=== PATIENT | male | born 1940 | race Caucasian/White ===

== ENCOUNTER 2016-05-21 08:43 | Inpatient (IN) | payer OTHER ==
[2016-04-27 13:34] VITALS: BMI 29.0
--- NOTE | 2016-04-27 14:19 | PAT Medication Instructions ---
Service Date Apr 27, 2016. Current Home Medication List Amlodipine (Norvasc), 5 MG PO QAM Amoxicillin (Amoxil), 500 MG PO QAM Benazepril Hcl (Lotensin), 40 MG PO QAM Ezetimibe (Zetia), 10 MG PO QAM Fish Oil (Hotevilla-3), 1 TAB PO QAM Garlic (Garlic), 1,000 MG PO QAM Ibuprofen (Advil), 600 MG PO BID Multivitamin (Multivitamin), 1 TAB PO QAM Potassium Chloride Microencaps (Klor-Con M10), 10 MEQ PO QAM Nany's Wort (Fanshawe Perf ([place] Wort), 300 MG PO QAM Triamterene/Hctz (Dyazide 37.5MG/25MG *), 1 CAP PO QAM [Antacid Otc], 1 TAB PO PRN [Food Enzymes], 1 TAB PO QAM [Nexium], 1 TAB PO PRN [Shaklee Cholesterol], 2 TAB PO QAM Medication Instructions For Your Scheduled Surgery - Check with surgeon for instructions: Ibuprofen (Advil), 600 MG PO BID - Hold the following medications 2 weeks prior to surgery: Nany's Wort (Fanshawe Perf ([place] Wort), 300 MG PO QAM Garlic (Garlic), 1,000 MG PO QAM Fish Oil (Hotevilla-3), 1 TAB PO QAM - Hold the following medications the morning of surgery: Benazepril Hcl (Lotensin), 40 MG PO QAM [Food Enzymes], 1 TAB PO QAM [Antacid Otc], 1 TAB PO PRN Triamterene/Hctz (Dyazide 37.5MG/25MG *), 1 CAP PO QAM Potassium Chloride Microencaps (Klor-Con M10), 10 MEQ PO QAM Multivitamin (Multivitamin), 1 TAB PO QAM [Shaklee Cholesterol], 2 TAB PO QAM - Take the following medications the morning of surgery with a sip of water: [Nexium], 1 TAB PO PRN Amlodipine (Norvasc), 5 MG PO QAM Ezetimibe (Zetia), 10 MG PO QAM Amoxicillin (Amoxil), 500 MG PO QAM - Take the following medications as scheduled the night before surgery: [Nexium], 1 TAB PO PRN [Antacid Otc], 1 TAB PO PRN If you have any questions please call us at [phone] (Bria Thompson PA-C) or [phone] or [phone]
[2016-04-27 14:56] LABS: BASO % 0.4 %; BASO ABS # 0.03 K/uL (0-0.2); COMPLETE YES; EOS % 2.6 %; HEMATOCRIT 42.2 % (42-52); IG% 0.1 %; LYMPH % 22.6 %; LYMPH ABS # 1.56 K/uL (1.2-3.4); MEAN CELL VOLUME 93.6 fL (80-100); MEAN CORPUSCULAR HEMOGLOBIN 33.9 pg (25-34); MEAN CORPUSCULAR HGB CONC 36.3 g/dl (32-36); MEAN PLATELET VOLUME 10.1 fL (7.4-10.4); MONO % 5.9 %; NEUT % 68.4 %; PLATELET COUNT 224 K/uL (130-400); RED BLOOD COUNT 4.51 M/uL (4.7-6.1)
--- NOTE | 2016-04-27 15:05 | DIAGNOSTIC IMAGING REPORT ---
CHEST 2 VIEWS ROUTINE HISTORY: Preop. COMPARISON: Chest 09/07/2012. FINDINGS: The lungs are clear. Cardiac silhouette is normal in size. No pleural effusions. No pneumothorax. IMPRESSION: No acute process. Electronically signed by: Mal Dove M.D. 04/27/2016 3:03 PM
[2016-04-27 15:06] LABS: PROTHROMBIN TIME (PATIENT) 10.4 SECONDS (9.0-12.0)
[2016-04-27 15:06] LABS: URINE APPEARANCE CLEAR (CLEAR); URINE BILIRUBIN NEG (NEG); URINE COLOR YELLOW; URINE NITRITE NEG (NEG); URINE SPECIFIC GRAVITY 1.018 (1.000-1.030); UROBILINOGEN NEG (NEG); ZZUR CULT IF INDIC CLEAN CATCH NO
[2016-04-27 15:10] LABS: MANUAL MICROSCOPIC REQUIRED? NO; REVIEW REQ? NO
[2016-04-27 15:22] LABS: C-REACTIVE PROTEIN 0.31 mg/dl (0-0.29)
--- NOTE | 2016-05-18 10:19 | HISTORY & PHYSICAL EXAMINATION ---
DATE OF ADMISSION: 05/21/2016 CHIEF COMPLAINT: Painful left total knee replacement. HISTORY OF PRESENT ILLNESS: Mr. Aaron is a 76-year-old male with a painful left total knee replacement. The patient had his knee replaced in 2006. He started having pain in September of 2015. Recent bone scan shows possible loosening of his components. He has now scheduled for left knee replacement. PAST MEDICAL HISTORY: Hypertension, hypercholesterolemia. He denies heart disease, diabetes or DVT. PAST SURGICAL HISTORY: Abdominal mass right kidney, right foot neuroma, bilateral knee replacements, right elbow bursa excision, sinus surgery and lumpectomy left breast. SOCIAL HISTORY: The patient denies alcohol or tobacco use. He lives in a single story home. 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 FAMILY HISTORY: Negative for DVT. MEDICATIONS: Klor-Con 10 mEq daily, benazepril 40 mg daily, garlic 1000 mg, amoxicillin 500 mg, triamterene 37.5/2.5 mg, amlodipine 5 mg, vitamin, [place]'s Wort 300 mg, Food Enzymes, fish oil 1200 mg, ibuprofen 600 mg b.i.d. ALLERGIES: TOBREX AND KEFLEX. REVIEW OF SYSTEMS: See HPI. Ten other systems reviewed, all negative. PHYSICAL EXAMINATION: VITAL SIGNS: Height 5 foot 10, weight 204 pounds, BMI is 29. GENERAL: This is a well-developed, well-nourished male who is alert and oriented x3. Mood and affect are appropriate. HEAD, EYES, EARS, NOSE, AND THROAT: Normocephalic, atraumatic. Mucous membranes are moist and intact. NECK: Supple without lymphadenopathy. HEART: Regular rate and rhythm without murmurs, rubs or gallops. LUNGS: Clear to auscultation without wheezes or rhonchi. ABDOMEN: Soft and nontender. Bowel sounds are equal and active. EXTREMITIES: No ecchymosis, redness or warmth. He has a midline incision that is well healed. He has a mild effusion. Range of motion is from 0-115 degrees. He does have moderate medial lateral instability. He is neurovascularly intact with +5/5 strength. X-RAY EXAMINATION: AP and lateral views show a left total knee arthroplasty in adequate position. Bone scan is positive for loosening. IMPRESSION: Aseptic loosening left knee replacement. PLAN: The patient will be admitted for a left total knee arthroplasty revision. We will plan on aspirin for DVT prophylaxis. The patient is planning to do outpatient physical therapy. PCP is Dr. Hayes [facility]. [facility]
[2016-05-21] VITALS (7 sets, daily range): BP systolic 118–151; BP diastolic 73–90; PULSE 61–74; TEMP 36.3–36.8; O2SAT 93–95; Ht 177.8 cm; Wt 93.0 kg
[~2016-05-21] VITALS: Ht 177.8 cm; Wt 93.0 kg
[2016-05-21] MEDS: TRANEXAMIC ACID INJ 1,000 MG in SODIUM CHLORIDE 0.9% 100ML 100 ML IV SCH ×2 (06:30→11:15)
[~2016-05-21 08:43] MED LIST: ACETAMINOPHEN 500 MG TAB PO SCH; AMLO-110 PO; AMOX500C3 PO; ANTACID OTC PO; BENA40TA6 PO; BUPIVACAINE 0.5 % 5 MG/1 ML PF 10ML VIAL ONE; CeleBREX 200 MG CAP PO SCH; DEXAMETHASONE 4 MG TAB PO SCH; DYZ PO; EZET10TA63 PO; FAMOTIDINE 20 MG TAB PO SCH; FOOD ENZYMES PO; GABAPENTIN 300 MG CAP PO SCH; GARL10007 PO; IBUP-1050 PO; LACTATED RINGER'S 1000ML 1,000 ML IV SCH; LACTATED RINGER'S 1000ML IV SCH; METOCLOPRAMIDE HCL 10 MG TAB PO SCH; MULT-506 PO; NEXIUM PO; OMEG10007 PO; OXYCODONE HCL 10 MG TABCR (OXYCONTIN) PO SCH; POLYMYXIN B SULFATE 100,000 UNITS in NSS 100ML IR SCH; POTA-331 PO; ROPIVACAINE 5MG/ML 30 ML 150 MG, BUPIVACAINE/EPINEPHR 0.5% MPF 30 ML, KETOROLAC TROMETH... INFIL SCH; ST J1CAP PO; VANCOMYCIN INJ 1,400 MG in SODIUM CHLORIDE 0.9% 500ML 500 ML IV SCH; VANCOMYCIN INJ 400 MG in NSS 100ML IR SCH; [UNRECOGNIZED DRUG - OTHER] PO
[2016-05-21] MEDS ORDERED: ACET-1256 PO (09:36)
[2016-05-21] MEDS ORDERED: ATROPINE SULFATE 0.1 MG/ML 5ML SYR IV PRN (10:15)
[2016-05-21] MEDS ORDERED: FENTANYL CITRATE INJ 50 MCG/1 ML 2 ML VIAL IV PRN (10:15)
[2016-05-21] MEDS ORDERED: MIDAZOLAM HCL 1 MG/ML 2ML VIAL ONE (10:15)
[2016-05-21] MEDS ORDERED: EpHEDrine SULFATE INJ 50 MG/ML AMP IV PRN (10:15)
[2016-05-21] MEDS ORDERED: ETOMIDATE 2 MG/ML 20 ML VIAL IV ONE (10:15)
[2016-05-21] MEDS ORDERED: ONDANSETRON INJ 2 MG/ML 2 ML VIAL IV PRN ×2 (10:15→14:15)
[2016-05-21] MEDS ORDERED: PROPOFOL IV EMULSION 10 MG/ML 20 ML VIAL IV ONE (10:16)
[2016-05-21] MEDS ORDERED: FENTANYL CITRATE INJ 50 MCG/1 ML 2 ML VIAL ONE (10:16)
--- NOTE | 2016-05-21 11:17 | History & Physical Bridge Note ---
H&P Re-Evaluation Bridge Note: I have examined the patient, reviewed the History & Physical and in the interval since the performance of the History & Physical I have noted the following changes of clinical significance: No changes noted
[2016-05-21] MEDS ORDERED: ORTHO JOINT ANESTHETIC ONE (11:48)
--- NOTE | 2016-05-21 14:08 | [facility] Post Operative Brief Note ---
Immediate Operative Summary Operative Date May 21, 2016. Pre-Operative Diagnosis Aseptic Loosening Left Total Knee Arthroplasty Post-Operative Diagnosis Aseptic Loosening Left Total Knee Arthroplasty Procedure(s) Performed Left Total Knee Revision Surgeon Dr. Rudy Sanford Exposure Machine Operator Surgeon(s) MISAEL Odell Estimated Blood Loss 5 Findings tibia very loose Specimens A. Removed Hardware Left Knee Culture--Left Knee Joint--for STAT gram stain, routine culture and sensitivity, aerobes and anaerobes--sent to lab at 1242 Complication(s) None Disposition Recovery Room / PACU
[2016-05-21] MEDS ORDERED: METOCLOPRAMIDE HCL INJ 5 MG/ML 2 ML VIAL IV PRN (14:15)
[2016-05-21] MEDS ORDERED: ALUMINUM/MAGNESIUM/SIMETH (MAALOX MAX) 30 ML UDC PO PRN (14:15)
[2016-05-21] MEDS ORDERED: BISACODYL 10 MG SUPP PR PRN (14:15)
[2016-05-21] MEDS ORDERED: OXYCODONE HCL IR 5 MG TAB (IMMEDIATE RELEASE) PO PRN (14:15)
[2016-05-21] MEDS ORDERED: ZOLPIDEM TARTRATE 5 MG TAB PO PRN (14:15)
[2016-05-21] MEDS ORDERED: MAGNESIUM HYDROXIDE SUSP 30 ML UDC PO PRN (14:15)
[2016-05-21] MEDS ORDERED: TRAMADOL HCL 50 MG TAB PO PRN (14:15)
[2016-05-21] MEDS ORDERED: DiphenhydrAMINE HCL 50 MG/ML VIAL IV PRN (14:15)
[2016-05-21] MEDS ORDERED: SOD PHOSPHATE/SOD BIPHOSPHATE ENEMA 132 ML BTL PR PRN (14:15)
[2016-05-21] MEDS ORDERED: MoRPHine SULFATE 2 MG/ML CARP IV PRN (14:15)
[2016-05-21] MEDS ORDERED: POVIDONE-IODINE OP SOLN 30 ML BTL TOP ONE (14:26)
[2016-05-21] MEDS ORDERED: BACITRACIN 50000 UNIT VIAL IR ONE (14:26)
--- NOTE | 2016-05-21 15:02 | DIAGNOSTIC IMAGING REPORT ---
LEFT KNEE 1 OR 2 VIEWS ROUTINE CLINICAL HISTORY: Left knee arthroplasty. COMPARISON: Knee radiographs March 28, 2013 FINDINGS: Alignment of the revision longstem left knee arthroplasty is anatomic. There is no fracture or unexpected radiopaque foreign body. Drains and skin sahra are present. IMPRESSION: Expected findings following revision left knee arthroplasty. Electronically signed by: Bruno Lees M.D. 05/21/2016 3:00 PM Dictated Date/Time: 05/21/2016 2:59 PM
--- NOTE | 2016-05-21 15:24 | OPERATIVE REPORT ---
DATE OF OPERATION: 05/21/2016 PREOPERATIVE DIAGNOSIS: Painful left total knee with aseptic loosening. POSTOPERATIVE DIAGNOSIS: Same. PROCEDURE: Left revision total knee replacement. SURGEON: Gabriele Sanford MD SET BUILDER: MISAEL Odell ANESTHESIA: Spinal. TOURNIQUET TIME: 120 minutes at 300 mmHg. DRAINS: Hemovac x2. CULTURES: None. COMPLICATIONS: None. COMPONENTS USED: [employer] [facility] revision knee system: Femur size 6 with bilateral 5-mm distal augments, bilateral 5-mm posterior augments, 6-mm offset, and an 18 x 120 stem. Tibia size 6, 6-mm offset, and 14 x 120 stem. Tibial insert 18 constrained. Patella size 38. NOTE: MISAEL Odell was present and assisted throughout due to the complicated nature of this case. She helped with preparation and set up, first assisted throughout and personally closed the capsule, subcutaneous and skin layers and applied the postoperative dressing. INDICATION FOR PROCEDURE: The patient is a 76-year-old male who is 9 years status post uncomplicated total knee replacement. He had done well with essentially no complaints or problems whatsoever. Over the last half year or so, he began developing discomfort and recurrent effusion. Radiographs showed lucencies about the tibia. Preoperative workup showed a positive bone scan, suggestive of loosening of the tibia. Preoperative inflammatory measures were negative and preoperative aspiration done at another institution was also negative. The patient is admitted for elective knee revision for presumed aseptic loosening. DESCRIPTION OF PROCEDURE: Following satisfactory spinal, the patient was supine. A tourniquet was placed. The lower extremity was prepared with ChloraPrep and draped sterilely. Following a surgical timeout, the tourniquet was inflated. A midline incision was made. Using the midline old incision with a median parapatellar arthrotomy, the knee showed a bunch of benign fluid. Cultures were taken. The tibial polyethylene was removed. It was apparent that the tibial component was loose that could be seen wiggling. The femoral component was more well fixed. Using the ultrasonic cement removal system, the femur was removed with minimal to no bone loss. The femur was not grossly loose. The tibia was loose and was removed without incident and just showed a fibrous membrane. The patella was measured thick at 30 mm and therefore was also removed. Using the IM reaming and alignment system, the tibia was prepared first followed by the femur. Preparation was completed including soft tissue balancing. Patella was freehand cut. The knee was then reduced with the above-mentioned trial components. This showed good tensioning stability on the collateral ligaments, stable range of motion, and the patella tracked well. The trial components were removed. The capsule was prepared with the orthopedic cocktail and after irrigation, the components were cemented using Simplex G cement. A Betadine soak was performed. When the cement had hardened, the Betadine was irrigated. Two drains were placed. The arthrotomy was closed with #1 Vicryl interrupted, the subcutaneous tissues with #1 Vicryl and 2-0 Vicryl, and the skin with surgical sahra. A surface wound VAC was applied. The tourniquet was deflated. The patient was returned to his bed in good condition. I attest to the content of the Intraoperative Record and any orders documented therein. Any exceptio ns are noted below.
--- NOTE | 2016-05-21 15:25 | Anesthesiology Progress Note ---
Anesthesia Post Op Note Date & Time May 21, 2016 at 15:25 Vital Signs Pain Intensity: 0 Vital Signs Past 12 Hours Date Time Temp Pulse Resp B/P Pulse Ox O2 Delivery O2 Flow Rate FiO2 05/21/16 15:15 36.4 73 16 137/80 94 Nasal Cannula 2 05/21/16 15:05 73 16 135/69 93 Nasal Cannula 2 05/21/16 14:55 73 16 107/97 93 Nasal Cannula 2 05/21/16 14:45 79 16 129/72 93 Nasal Cannula 2 05/21/16 14:35 36.5 87 16 137/79 93 Nasal Cannula 2 05/21/16 09:48 36.5 67 20 144/80 95 Room Air Notes Mental Status: alert / awake / arousable, participated in evaluation Pt Amnestic to Procedure: Yes Nausea / Vomiting: adequately controlled Pain: adequately controlled Airway Patency, RR, SpO2: stable & adequate BP & HR: stable & adequate Hydration State: stable & adequate Neuraxial Anesthesia: was administered, sensory block is resolving Anesthetic Complications: no major complications apparent
[2016-05-21] MEDS: D5W AND 1/2NSS + 20MEQ KCL 1,000 ML IV SCH (17:23)
[2016-05-21] MEDS: ACETAMINOPHEN 500 MG TAB PO SCH (18:42)
[2016-05-21] MEDS: CLINDAMYCIN IV 600 MG in DEXTROSE 5% ADD-VANTAGE 50ML 50 ML IV SCH (18:42)
[2016-05-21] MEDS: KETOROLAC TROMETHAMINE 15 MG/ML VIAL IV. SCH (18:42)
[2016-05-21] MEDS: OXYCODONE HCL 10 MG TABCR (OXYCONTIN) PO SCH (20:42)
[2016-05-21] MEDS: SENNA 8.6 MG TAB PO SCH (20:43)
[2016-05-21] MEDS: ASPIRIN 325 MG ECTAB PO SCH (21:37)
[2016-05-22] MEDS: ACETAMINOPHEN 500 MG TAB PO SCH ×4 (00:08→23:24)
[2016-05-22] MEDS: KETOROLAC TROMETHAMINE 15 MG/ML VIAL IV. SCH ×5 (00:08→23:25)
[2016-05-22] MEDS: CLINDAMYCIN IV 600 MG in DEXTROSE 5% ADD-VANTAGE 50ML 50 ML IV SCH (02:27)
[2016-05-22] MEDS: D5W AND 1/2NSS + 20MEQ KCL 1,000 ML IV SCH ×2 (02:27→12:10)
[2016-05-22 03:00] VITALS: BP 113/67; PULSE 55; TEMP 36.6; O2SAT 98
[2016-05-22 06:33] LABS: MEAN CORPUSCULAR HEMOGLOBIN 33.2 pg (25-34); MEAN CORPUSCULAR HGB CONC 35.8 g/dl (32-36); MEAN PLATELET VOLUME 9.9 fL (7.4-10.4); PLATELET COUNT 207 K/uL (130-400); RED BLOOD COUNT 3.55 M/uL (4.7-6.1); WHITE BLOOD COUNT 11.37 K/uL (4.8-10.8)
[2016-05-22 07:07] LABS: BUN/CREATININE RATIO 24.5 (10-20); CALCIUM 8.5 mg/dl (8.5-10.1); POTASSIUM 4.2 mmol/L (3.5-5.1)
--- NOTE | 2016-05-22 07:28 | Orthopedic Progress Note ---
Orthopedic Progress Note Date of Service May 22, 2016. Subjective Post OP Day: 1 Reports: feeling well, pain controlled w PO medications, Denies: SOB, chest pain , complaints, light headedness, nausea / vomiting Objective calves soft nontender, N/V intact, dressing C/D/I, toes mobile, hemovac drainage (250 last shift ) Date Time Temp Pulse Resp B/P Pulse Ox O2 Delivery O2 Flow Rate FiO2 05/22/16 03:00 36.6 55 16 113/67 98 CPAP 05/22/16 00:10 Room Air CPAP 05/21/16 23:05 36.4 61 16 118/73 93 BiPAP 05/21/16 18:45 36.3 69 18 131/77 94 Room Air 05/21/16 17:45 36.8 74 18 151/89 95 Nasal Cannula 2.0 05/21/16 16:45 36.3 73 18 142/90 93 Nasal Cannula 2.0 05/21/16 16:15 36.3 66 18 145/86 95 Nasal Cannula 2.0 05/21/16 16:00 Nasal Cannula 2.0 05/21/16 16:00 Nasal Cannula 2.0 05/21/16 15:45 36.3 74 18 146/81 94 Nasal Cannula 2.0 05/21/16 15:35 75 16 129/81 93 Nasal Cannula 2 05/21/16 15:25 67 16 114/80 95 Nasal Cannula 2 05/21/16 15:15 36.4 73 16 137/80 94 Nasal Cannula 2 05/21/16 15:05 73 16 135/69 93 Nasal Cannula 2 05/21/16 14:55 73 16 107/97 93 Nasal Cannula 2 05/21/16 14:45 79 16 129/72 93 Nasal Cannula 2 05/21/16 14:35 36.5 87 16 137/79 93 Nasal Cannula 2 05/21/16 09:48 36.5 67 20 144/80 95 Room Air Laboratory Results 24 Hours: Test 05/22/16 05:55 Hematocrit 33.0 % Hemoglobin 11.8 g/dL Assessment & Plan Assessment: POD 1 L REVISION TKA Plan: HOME TODAY LEAVE DRAIN IN WILL DC AT HOME TUESDAY Inhouse Planning Pain Management: Celebrex, Oxycontin, PO Tylenol, Oxy IR DVT Prophylaxis: TEDs, SCDs, ASA Discharge Planning Discharge Planning: home with oppt Pain Management: Celebrex, Oxycontin, PO Tylenol, Oxy IR DVT Prophylaxis: TEDs, ASA
--- NOTE | 2016-05-22 07:30 | Orthopedic Progress Note ---
Orthopedic Progress Note Date of Service May 22, 2016. Subjective Post OP Day: 1 Reports: feeling well, pain controlled w PO medications, Denies: SOB, chest pain , complaints, light headedness, nausea / vomiting Objective calves soft nontender, N/V intact Date Time Temp Pulse Resp B/P Pulse Ox O2 Delivery O2 Flow Rate FiO2 05/22/16 03:00 36.6 55 16 113/67 98 CPAP 05/22/16 00:10 Room Air CPAP 05/21/16 23:05 36.4 61 16 118/73 93 BiPAP 05/21/16 18:45 36.3 69 18 131/77 94 Room Air 05/21/16 17:45 36.8 74 18 151/89 95 Nasal Cannula 2.0 05/21/16 16:45 36.3 73 18 142/90 93 Nasal Cannula 2.0 05/21/16 16:15 36.3 66 18 145/86 95 Nasal Cannula 2.0 05/21/16 16:00 Nasal Cannula 2.0 05/21/16 16:00 Nasal Cannula 2.0 05/21/16 15:45 36.3 74 18 146/81 94 Nasal Cannula 2.0 05/21/16 15:35 75 16 129/81 93 Nasal Cannula 2 05/21/16 15:25 67 16 114/80 95 Nasal Cannula 2 05/21/16 15:15 36.4 73 16 137/80 94 Nasal Cannula 2 05/21/16 15:05 73 16 135/69 93 Nasal Cannula 2 05/21/16 14:55 73 16 107/97 93 Nasal Cannula 2 05/21/16 14:45 79 16 129/72 93 Nasal Cannula 2 05/21/16 14:35 36.5 87 16 137/79 93 Nasal Cannula 2 05/21/16 09:48 36.5 67 20 144/80 95 Room Air Laboratory Results 24 Hours: Test 05/22/16 05:55 Hematocrit 33.0 % Hemoglobin 11.8 g/dL Assessment & Plan Assessment: POD 1 L REVISION TKA Plan: HOME TSUNDAY LEAVE DRAIN IN WILL DC TOMORROW Inhouse Planning Pain Management: Celebrex, Oxycontin, PO Tylenol, Oxy IR DVT Prophylaxis: TEDs, SCDs, ASA Discharge Planning Discharge Planning: home with oppt Pain Management: Celebrex, Oxycontin, PO Tylenol, Oxy IR DVT Prophylaxis: TEDs, ASA
[2016-05-22 07:43] VITALS: BP 161/87; PULSE 63; TEMP 36.4; O2SAT 97
[2016-05-22] MEDS: AMLODIPINE BESYLATE 5 MG TAB PO SCH (08:52)
[2016-05-22] MEDS: ENALAPRIL MALEATE 10 MG TAB PO SCH (08:52)
[2016-05-22] MEDS: TRIAMTERENE/HCTZ 37.5/25MG CAP PO SCH (08:52)
[2016-05-22] MEDS: POTASSIUM CHLORIDE 10 MEQ TABCR PO SCH (08:52)
[2016-05-22] MEDS: MULTIVITAMIN TAB PO SCH (08:52)
[2016-05-22] MEDS: EZETIMIBE 10MG TAB PO SCH (08:53)
[2016-05-22] MEDS: ASPIRIN 325 MG ECTAB PO SCH ×2 (08:53→21:07)
[2016-05-22] MEDS: OXYCODONE HCL 10 MG TABCR (OXYCONTIN) PO SCH ×2 (08:53→21:08)
[2016-05-22] MEDS: PANTOprazole SOD 40 MG TAB PO SCH (08:57)
[2016-05-22 09:52] VITALS: BP 148/83; PULSE 80; O2SAT 86
[2016-05-22 15:17] VITALS: BP 149/82; PULSE 79; TEMP 36.5; O2SAT 97
[2016-05-22] MEDS: SENNA 8.6 MG TAB PO SCH (21:08)
[2016-05-22 23:03] VITALS: BP 152/88; PULSE 76; TEMP 36.8; O2SAT 92
[2016-05-23] MEDS: KETOROLAC TROMETHAMINE 15 MG/ML VIAL IV. SCH ×2 (05:48→12:00)
[2016-05-23 07:08] VITALS: BP 144/81; PULSE 62; TEMP 36.5; O2SAT 96
[2016-05-23 07:38] VITALS: BP 144/81; PULSE 62; TEMP 36.5; O2SAT 96
--- NOTE | 2016-05-23 08:21 | Orthopedic Progress Note ---
Orthopedic Progress Note Date of Service May 23, 2016. Subjective Post OP Day: 2 Reports: feeling well, pain controlled w PO medications, Denies: SOB, calf pain , chest pain, complaints, light headedness, nausea / vomiting Objective calves soft nontender, N/V intact, capillary refill less than 2 sec., dressing C /D/I, A&O x3, toes mobile Date Time Temp Pulse Resp B/P Pulse Ox O2 Delivery O2 Flow Rate FiO2 05/23/16 07:38 36.5 62 19 96 Room Air CPAP 05/23/16 07:20 Room Air CPAP 05/23/16 07:08 36.5 62 19 144/81 96 Room Air 05/22/16 23:15 Room Air 05/22/16 23:03 36.8 76 18 152/88 92 Room Air 05/22/16 15:30 Room Air 05/22/16 15:17 36.5 79 17 149/82 97 Room Air 05/22/16 09:52 80 86 Assessment & Plan Assessment: POD #2 L REVISION TKA Plan: HOME TODAY HEMOVAC D/C'D THIS AM. Inhouse Planning Pain Management: Celebrex, Oxycontin, PO Tylenol, Oxy IR DVT Prophylaxis: TEDs, SCDs, ASA Discharge Planning Discharge Planning: home with oppt Pain Management: Celebrex, Oxycontin, PO Tylenol, Oxy IR DVT Prophylaxis: TEDs, ASA
[2016-05-23] MEDS ORDERED: RXC5 PO (08:24)
[2016-05-23] MEDS ORDERED: ACET-1138 PO (08:24)
[2016-05-23] MEDS ORDERED: CLB200 PO (08:24)
[2016-05-23] MEDS ORDERED: MORP15TA19 PO (08:24)
[2016-05-23] MEDS ORDERED: ONDA8TAB6 PO (08:24)
[2016-05-23] MEDS ORDERED: ASPEC325 PO (08:24)
--- NOTE | 2016-05-23 08:26 | Discharge Instructions ---
Discharge Instructions Admission Reason for Admission: Left Knee Complication W/Internal Joint Prosthesis Discharge Discharge Diagnosis / Problem: Left Knee Complication W/Internal Joint Prosthesis Discharge Goals Goal(s): Decrease discomfort, Improve function Activity Recommendations Activity Limitations: as noted below Lifting Limitations: until after follow-up appointment Exercise/Sports Limitations: until after follow-up appointment May Resume Sexual Activity: when tolerated Shower/Bathe: may shower/bathe in 3 days (Keep Silverlon dressing in place) Driving or Machine Use: When cleared by Dr. Sanford's office. Weightbearing Status: Left weightbearing (as tolerated) . Instructions / Follow-Up Instructions / Follow-Up ACTIVITY RECOMMENDATIONS: SELF CARE INSTRUCTIONS AFTER TOTAL KNEE REPLACEMENT A. You may need to continue a physical therapy program after discharge from the hospital. There are several options available to you. Your doctor will assist you in selecting the best one for you. 1. An out-patient facility 3 times a week for therapy. 2. Home therapy for 1 to 2 weeks with outpatient therapy to follow. 3. Continue working on all exercises taught by physical therapy three times a day for 20 minutes on non-therapy days. Your goals should be to increase the bending of your knee to 90 degrees and beyond and to fully straighten your knee. Ice and elevate knee after exercise. B. Weight as tolerated with a walker or as instructed by your physician. C. It is okay to shower if minimal to no drainage from incision. No Baths. Do not soak wound. D. Make walking a part of your daily routine. Be up as much as comfortable with rest periods throughout the day. Rest with leg elevation is very important. Use the ice wrap frequently for the first 3-4 weeks. E. There are no restrictions on activities. You may ride in a car, shop, participate in sales assistants and salespersons and all social activities. F. Wear the long elastic stockings (MILAN hose) 20 hours a day for one month after surgery. They can be removed several times a day for laundering and when showering. G. Silverlon- This is a large adhesive bandage that contains silver ions. This helps your incision heal by fighting off bacteria and protecting it from the outside environment. You are permitted to shower with this dressing. This will remain on your incision for 7 days and then should be removed. Some visible blood or drainage through the dressing window is normal. If there is significant drainage or leaking noted before the 7 days notify your doctor's office immediately. Once removed, keep incision clean and dry. If there is any drainage or redness noted, please call your surgeon. SPECIAL CARE INSTRUCTIONS: VERY IMPORTANT TO READ AND REVIEW A. Take Coumadin, Xarelto, Aspirin or Lovenox (blood thinning medications) as directed by your doctor. If on Coumadin, have a pro-time (blood test) drawn according to your doctor's instructions. This will tell the doctor how well the Coumadin is thinning your blood. B. There are a few signs you need to watch for after you are home. Call [facility] if you notice any of the followin. Increased severe knee pain. Some pain is expected especially when you exercise. 2. Increased swelling in your leg or knee; pain or swelling of the calf muscle in either lower leg. 3. Any redness or fluid drainage from the incision. 4. Shortness of breath or chest pain. 5. A Temperature of 101 degrees F or greater. C. Please call [facility] at if you have any concerns or questions about your operation or recovery. The doctor or his nurse will return your call promptly. D. You must take antibiotics before dental work, bladder, bowel or other surgery. Your doctor will provide you with a permanent care to carry describing this precaution. FOLLOW UP VISIT: If appointment is not already scheduled: Please call [facility] to make a follow-up appointment for one month after your surgery at . Current Hospital Diet Patient's current hospital diet: Regular Diet Discharge Diet Recommended Diet: Regular Diet Procedures Procedures Performed: Left Total Knee Revision Pending Studies Studies pending at discharge: no Medical Emergencies . Who to Call and When: Medical Emergencies: If at any time you feel your situation is an emergency, please call [phone] immediately. . Non-Emergent Contact Non-Emergency issues call your: Surgeon Call Non-Emergent contact if: temperature is above 101, your pain is not controlled, your pain is worsening, wound has increased drainage, wound has increased redness, wound has increased pain . "Provider Documentation" section prepared by Manjinder Ontiveros. VTE Core Measure Inpt VTE Proph given/why not?: Other Anticoagulation (Aspirin), T.E.D. Stockings
[2016-05-23] MEDS: AMLODIPINE BESYLATE 5 MG TAB PO SCH (08:45)
[2016-05-23] MEDS: POTASSIUM CHLORIDE 10 MEQ TABCR PO SCH (08:45)
[2016-05-23] MEDS: OXYCODONE HCL 10 MG TABCR (OXYCONTIN) PO SCH (08:45)
[2016-05-23] MEDS: ASPIRIN 325 MG ECTAB PO SCH (08:45)
[2016-05-23] MEDS: ENALAPRIL MALEATE 10 MG TAB PO SCH (08:46)
[2016-05-23] MEDS: EZETIMIBE 10MG TAB PO SCH (08:46)
[2016-05-23] MEDS: PANTOprazole SOD 40 MG TAB PO SCH (08:47)
[2016-05-23] MEDS: TRIAMTERENE/HCTZ 37.5/25MG CAP PO SCH (08:48)
[2016-05-23] MEDS: MULTIVITAMIN TAB PO SCH (08:48)
[2016-05-23] MEDS: ACETAMINOPHEN 500 MG TAB PO SCH (08:49)
[2016-05-23] MEDS ORDERED: CeleBREX 200 MG CAP PO SCH (21:00)
--- NOTE | 2016-06-08 12:08 | DISCHARGE SUMMARY ---
DISCHARGE DIAGNOSIS: Painful left total knee replacement. SECONDARY DIAGNOSES: None. CONSULTS: None. COMPLICATIONS: None. PROCEDURE: The patient underwent revision left total knee arthroplasty with Dr. Sanford on 05/21/2016. BRIEF HISTORY: Please see previously dictated history and physical. HOSPITAL SUMMARY: The patient was admitted on the above day for the above procedure. Procedure went without complication. Postop day 1, the patient was feeling well without complaints. He denied chest pain or shortness of breath. Vital signs were stable. He was afebrile. Dressing was clean, dry and intact. He was neurovascularly intact. Calves were soft and nontender. Hemovac drained 250 mL. Hemoglobin was 11.8. The patient began physical therapy per protocol. The patient was discharged later that day in stable condition. For further review please see the chart. Lab, x-ray data and discharge instructions as per chart.
== END 2016-05-23 13:43 | disposition home or self-care (01) | DRG 468 ==
LOC: ENRESERVTM → ENRESERVDT → C.ACU 08:43 → C.3E 10:30
PROVIDERS: ADMIT Orthopaedic Surgery; ATTEND Orthopaedic Surgery
PROC: 0SPD0JZ Removal of Synthetic Substitute from Left Knee Joint, Open Approach (ICD-10-PCS; principal; 2016-05-21 11:00)
PROC: 0SRD0J9 Replacement of Left Knee Joint with Synthetic Substitute, Cemented, Open Approach (ICD-10-PCS; principal; 2016-05-21 11:00)
DX: T84.033A Mechanical loosening of internal left knee prosthetic joint, initial encounter (principal); E78.00 Pure hypercholesterolemia, unspecified; I10 Essential (primary) hypertension; G47.33 Obstructive sleep apnea (adult) (pediatric); R20.0 Anesthesia of skin; E66.9 Obesity, unspecified; E78.5 Hyperlipidemia, unspecified; K21.9 Gastro-esophageal reflux disease without esophagitis; G62.9 Polyneuropathy, unspecified; Z79.1 Long term (current) use of non-steroidal anti-inflammatories (NSAID); Z79.899 Other long term (current) drug therapy; Z96.653 Presence of artificial knee joint, bilateral; Z68.29 Body mass index [BMI] 29.0-29.9, adult; Z98.890 Other specified postprocedural states

== ENCOUNTER 2016-06-09 10:22 | Inpatient (IN) | payer OTHER ==
[~2016-06-09] VITALS: Ht 177.8 cm; Wt 93.0 kg
[2016-06-09] VITALS (7 sets, daily range): BP systolic 118–146; BP diastolic 70–88; PULSE 66–86; TEMP 36.3–37.2; O2SAT 96–99; Ht 177.8 cm; Wt 93.0 kg
[~2016-06-09 10:22] MED LIST changes: +ACET-1138 PO; -ACETAMINOPHEN 500 MG TAB PO SCH; +ASPEC325 PO; -BUPIVACAINE 0.5 % 5 MG/1 ML PF 10ML VIAL ONE; +CLB200 PO; -CeleBREX 200 MG CAP PO SCH; -DEXAMETHASONE 4 MG TAB PO SCH; -FAMOTIDINE 20 MG TAB PO SCH; -GABAPENTIN 300 MG CAP PO SCH; -IBUP-1050 PO; -LACTATED RINGER'S 1000ML 1,000 ML IV SCH; -LACTATED RINGER'S 1000ML IV SCH; -METOCLOPRAMIDE HCL 10 MG TAB PO SCH; +MORP15TA19 PO; +ONDA8TAB6 PO; -OXYCODONE HCL 10 MG TABCR (OXYCONTIN) PO SCH; -POLYMYXIN B SULFATE 100,000 UNITS in NSS 100ML IR SCH; -ROPIVACAINE 5MG/ML 30 ML 150 MG, BUPIVACAINE/EPINEPHR 0.5% MPF 30 ML, KETOROLAC TROMETH... INFIL SCH; +RXC5 PO; -VANCOMYCIN INJ 1,400 MG in SODIUM CHLORIDE 0.9% 500ML 500 ML IV SCH; -VANCOMYCIN INJ 400 MG in NSS 100ML IR SCH
[2016-06-09] MEDS ORDERED: POTA10CA28 PO (10:46)
[2016-06-09] MEDS ORDERED: ASPI81TA28 PO (10:46)
[2016-06-09] MEDS ORDERED: TRIA37.5 PO (10:46)
[2016-06-09] MEDS ORDERED: SODIUM CHLORIDE 0.9% 500ML 500 ML IV STA (11:11)
--- NOTE | 2016-06-09 11:13 | EMERGENCY ROOM VISIT NOTE ---
History First contact with patient: 10:55 Chief Complaint: FALL Stated Complaint: FELL History of Present Illness The patient is a 76 year old male who presents to the Emergency Room via ambulance with complaints of "fell". The patient states that earlier today he was outside shoveling snow around 8:30 AM when he went to step towards his mailbox and slipped on the ice landing directly onto his left knee overlying the surgical incision region. He states that this split open and then began to bleed. He at this time denies any pain. He notes that the left thigh does feel slightly tight and has slipped but did not fall twice in the recent past causing the thigh muscle to tighten/hurt with today being the third time. He again notes that at this time nothing hurts. He denies any pain, striking his head, loss of consciousness, neck pain, fevers, chills, chest pain, shortness of breath. His tetanus is not up-to-date. The surgery to the left knee was performed on 05/21/[address] Sanford of [facility]. He is currently on Augmentin for a sinus infection. Review of Systems A complete 10-point Review of Systems was discussed with the patient, with pertinent positives and negatives listed in the History of Present Illness. All remaining Review of Systems questions can be considered negative unless otherwise specified. 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 He lives at home with his . He denies tobacco use but admits to alcohol consumption. Current/Historical Medications Scheduled Acetaminophen (Tylenol Extra Strength), 1,000 MG PO Q8@0000,0800,1600 Amlodipine (Norvasc), 5 MG PO QAM Amoxicillin (Amoxil), 500 MG PO QAM Aspirin (Aspirin Ec), 81 MG PO DAILY Benazepril Hcl (Lotensin), 40 MG PO QAM Celecoxib (Celebrex), 200 MG PO BID Ezetimibe (Zetia), 10 MG PO QAM Fish Oil ([place]-3), 1 TAB PO QAM Garlic (Garlic), 1,000 MG PO QAM Multivitamin (Multivitamin), 1 TAB PO QAM Potassium Chloride (Micro-K Ext Rel), 10 MEQ PO DAILY Nany's Wort ([place] Perf ([place] Wort), 300 MG PO QAM Triamterene/Hctz (Dyazide 37.5MG/25MG), 1 TAB PO QAM Allergies Coded Allergies: Cephalexin (Verified Allergy, Unknown, ITCHY REDNESS, 05/21/16) Tobramycin (Verified Allergy, Unknown, swelling redness with eye drops, ) Physical Exam Vital Signs Date Time Temp Pulse Resp B/P Pulse Ox O2 Delivery O2 Flow Rate FiO2 06/09/16 17:00 97 Nasal Cannula 2.0 06/09/16 17:00 Nasal Cannula 2.0 06/09/16 17:00 36.5 66 18 118/78 97 Nasal Cannula 2.0 06/09/16 16:49 64 16 100 06/09/16 16:49 63 16 06/09/16 16:48 118/70 06/09/16 16:44 60 16 06/09/16 16:44 60 16 100 06/09/16 16:43 128/72 06/09/16 16:39 62 18 06/09/16 16:39 61 18 100 06/09/16 16:38 120/68 06/09/16 16:34 62 16 06/09/16 16:34 64 16 100 06/09/16 16:33 62 15 122/73 100 06/09/16 16:33 62 15 06/09/16 16:28 63 15 06/09/16 16:28 61 15 115/72 100 06/09/16 16:27 62 18 06/09/16 16:27 62 18 100 06/09/16 16:24 110/70 06/09/16 16:22 62 17 06/09/16 16:22 61 17 99 06/09/16 16:18 107/70 06/09/16 16:17 60 9 06/09/16 16:17 61 9 100 06/09/16 16:13 117/64 06/09/16 16:12 60 12 100 06/09/16 16:12 59 12 06/09/16 16:08 101/67 06/09/16 16:07 66 20 06/09/16 16:07 65 20 100 06/09/16 16:03 100/57 06/09/16 16:02 63 12 100 06/09/16 16:02 64 12 06/09/16 15:58 94/62 06/09/16 15:57 71 15 06/09/16 15:57 71 15 100 06/09/16 15:53 106/67 06/09/16 15:52 66 12 06/09/16 15:52 68 12 100 06/09/16 15:48 102/62 06/09/16 15:47 36.3 80 18 106/65 98 Nasal Cannula 2 06/09/16 15:47 75 19 06/09/16 15:47 75 19 100 06/09/16 12:33 97 Room Air 06/09/16 12:24 75 06/09/16 12:19 77 18 144/87 97 06/09/16 10:25 36.8 69 18 173/84 96 Room Air Physical Exam VITAL SIGNS - Vital signs and nursing notes were reviewed. Patient is afebrile , he is hypertensive at 173/84, he is not tachycardic and is saturating well on room air at 96%. GENERAL -76-year-old male appearing his stated age who is in no acute distress. Communicates well with provider and answers questions appropriately. SKIN - Without rashes. HEAD - NC/AT. EYES - Sclera anicteric. Palpebral conjunctiva pink and moist with no injection noted. EARS - No deformities of external structures noted on gross examination bilaterally. NOSE - Midline and without cyanosis. No epistaxis or purulent drainage noted. MOUTH/OROPHARYNX - Without perioral cyanosis. NECK - Neck with FROM. Supple to palpation. No C-spine tenderness. No paraspinous musculature tenderness. LUNGS - Chest wall symmetric without accessory muscle use, intercostals retractions, or central cyanosis. Normal vesicular breath sounds CTA B/L. No wheezes, rales, or rhonchi appreciated. CARDIAC - RRR with S1/S2. No murmur, rubs, or gallops appreciated. ABDOMEN - Abdominal contour without pulsations or visible masses. BS normoactive all four quadrants. No tenderness, palpable masses, hepatosplenomegaly, or ascites noted. EXTREMITIES - No clubbing or peripheral cyanosis. No pretibial edema present. There is a large gaping incisional wound over the left anterior knee with visible prosthesis. There is minimal active bleeding. There is tenderness to palpation overlying the anterior thigh. There is no right leg, bilateral hip, abdominal, back, neck or upper extremity tenderness. Patient is vascular intact. NEUROLOGIC - Cranial nerves II through XII grossly intact. Sensory intact to light touch throughout. Patient is neurologically intact. PSYCH - A&Ox3 and cooperates fully with examiner. Pt is very pleasant and interacts well with examiner. Medical Decision & Procedures Laboratory Results 06/09/16 10:22 Red Blood Count 3.64, Mean Corpuscular Volume 95.6, Mean Corpuscular Hemoglobin 33.5, Mean Corpuscular Hemoglobin Concent 35.1, Mean Platelet Volume 9.1, Neutrophils (%) (Auto) 82.9, Lymphocytes (%) (Auto) 10.1, Monocytes (%) (Auto) 5.4, Eosinophils (%) (Auto) 1.2, Basophils (%) (Auto) 0.1, Neutrophils # (Auto) 7.52, Lymphocytes # (Auto) 0.92, Monocytes # (Auto) 0.49, Eosinophils # (Auto) 0.11, Basophils # (Auto) 0.01 06/09/16 10:22 Test 06/09/16 10:22 White Blood Count 9.08 K/uL (4.8-10.8) Red Blood Count 3.64 M/uL (4.7-6.1) Hemoglobin 12.2 g/dL (14.0-18.0) Hematocrit 34.8 % (42-52) Mean Corpuscular Volume 95.6 fL (80-100) Mean Corpuscular Hemoglobin 33.5 pg (25-34) Mean Corpuscular Hemoglobin Concent 35.1 g/dl (32-36) Platelet Count 262 K/uL (130-400) Mean Platelet Volume 9.1 fL (7.4-10.4) Neutrophils (%) (Auto) 82.9 % Lymphocytes (%) (Auto) 10.1 % Monocytes (%) (Auto) 5.4 % Eosinophils (%) (Auto) 1.2 % Basophils (%) (Auto) 0.1 % Neutrophils # (Auto) 7.52 K/uL (1.4-6.5) Lymphocytes # (Auto) 0.92 K/uL (1.2-3.4) Monocytes # (Auto) 0.49 K/uL (0.11-0.59) Eosinophils # (Auto) 0.11 K/uL (0-0.5) Basophils # (Auto) 0.01 K/uL (0-0.2) RDW Standard Deviation 48.4 fL (36.4-46.3) RDW Coefficient of Variation 14.0 % (11.5-14.5) Immature Granulocyte % (Auto) 0.3 % Immature Granulocyte # (Auto) 0.03 K/uL (0.00-0.02) Anion Gap 11.0 mmol/L (3-11) Est Creatinine Clear Calc Drug Dose 53.0 ml/min Estimated GFR () 57.0 Estimated GFR (Non- 49.1 BUN/Creatinine Ratio 21.6 (10-20) Calcium Level 9.5 mg/dl (8.5-10.1) Total Creatine Kinase 128 U/L (39-308) Medications Administered Medications (Trade) Dose Ordered Sig/Denny Route Start Time Stop Time Status Last Admin Dose Admin Sodium Chloride (Nss 500ml) 500 ml @ 500 mls/hr Q1H STAT IV 06/09/16 11:11 06/09/16 12:10 DC 06/09/16 11:24 500 MLS/HR Diphtheria/ Pertussis/Tetanus Vacc (Adacel Inj) 0.5 ml ONCE ONCE IM. 06/09/16 11:15 06/09/16 11:16 DC 06/09/16 11:26 0.5 ML Bacitracin (Bacitracin Inj) 50,000 units ONE ONCE IR 06/09/16 14:59 06/09/16 15:00 DC 06/09/16 14:59 50,000 UNITS Povidone Iodine (Betadine Ophthalmic Prep Solution) 20 ml ONE ONCE TOP 06/09/16 14:59 06/09/16 15:00 DC 06/09/16 14:59 20 ML Oxycodone HCl (Roxicodone Immediate Rel Tab) 1 TABLET FOR PAIN RATING... Q4H PRN PO 06/09/16 16:00 06/23/16 15:59 06/09/16 19:36 10 MG Morphine Sulfate (MoRPHine SULFATE INJ) 4 mg Q4HWA PRN IV 06/09/16 16:30 06/23/16 16:29 2 22:19 4 MG Medical Decision Patient was seen and evaluated as above. After obtaining a thorough history and physical examination it was evident the patient would have to go to the operating room for surgical repair of the wound dehiscence. I probably notify the personnel to prepare potential for and had a call placed to [facility] here in the OR and left a message for Matthew De La Rosa. IV access was obtained and a CBC, PRP, 500 mL of saline were ordered secondary to subjective and objective examination findings. I did not order antibiotics initially as I was waiting to hear from the orthopedic surgeon regarding choice of antibiotics. No signs of infection at this time and the knee. Patient is hemodynamically stable. Tetanus was updated. CBC revealed no leukocytosis but slight anemia. BUN was elevated at 30. Which is up 5 points from 1 month ago. I do believe the patient warrants admission and OR repair of the wound secondary to the injury. Patient was probably taken to the OR. He was then admitted. Please refer to further documentation regarding his stay. In the evaluation and treatment of this patient the following differential diagnoses were entertained: Traumatic injury to left knee with open surgical wound, among others. Impression Primary Impression: Fall Additional Impressions: Anemia Elevated BUN Departure Information Dispostion Admitted as an inpatient Referrals Hector Hayes M.D. (PCP) Patient Instructions My [facility] Problem Qualifiers Primary Impression: Fall Encounter type: initial encounter Qualified Codes: W19.XXXA - Unspecified fall, initial encounter
[2016-06-09] MEDS ORDERED: DIPHTHERIA/TETANUS/PERTUSSIS 0.5 ML SYR/VIAL IM. ONE (11:15)
[2016-06-09 11:35] LABS: BASO % 0.1 %; BASO ABS # 0.01 K/uL (0-0.2); COMPLETE YES; EOS % 1.2 %; HEMATOCRIT 34.8 % (42-52); IG% 0.3 %; LYMPH % 10.1 %; LYMPH ABS # 0.92 K/uL (1.2-3.4); MEAN CELL VOLUME 95.6 fL (80-100); MEAN CORPUSCULAR HEMOGLOBIN 33.5 pg (25-34); MEAN CORPUSCULAR HGB CONC 35.1 g/dl (32-36); MEAN PLATELET VOLUME 9.1 fL (7.4-10.4); MONO % 5.4 %; NEUT % 82.9 %; PLATELET COUNT 262 K/uL (130-400); RED BLOOD COUNT 3.64 M/uL (4.7-6.1); WHITE BLOOD COUNT 9.08 K/uL (4.8-10.8)
[2016-06-09] MEDS ORDERED: D5W AND 1/2NSS 1,000 ML IV SCH (11:54)
[2016-06-09 11:55] LABS: BUN/CREATININE RATIO 21.6 (10-20); CALCIUM 9.5 mg/dl (8.5-10.1); CREATININE 1.4 mg/dl (0.60-1.40); POTASSIUM 4.1 mmol/L (3.5-5.1)
--- NOTE | 2016-06-09 12:06 | History and Physical ---
History & Physical CHIEF COMPLAINT: Left total knee wound dehiscence s/p revision TKA HISTORY OF PRESENT ILLNESS: The patient is a 76 year old male who presents to the Emergency Room via ambulance with complaints of "fell". The patient states that earlier today he was outside shoveling snow around 8:30 AM when he went to step towards his mailbox and slipped on the ice landing directly onto his left knee overlying the surgical incision region. He states that this split open and then began to bleed. He at this time denies any pain. He notes that the left thigh does feel slightly tight and has slipped but did not fall twice in the recent past causing the final muscle to her with today being the third time. He denies striking his head, loss of consciousness, neck pain, fevers, chills, chest pain, shortness of breath. His tetanus is not up-to-date. His initial knee replacement was in 2006. He underwent revision TKA approximately [address] Sanford. PAST MEDICAL HISTORY: Hypertension, hypercholesterolemia. He denies heart disease, diabetes or DVT. PAST SURGICAL HISTORY: Abdominal mass right kidney, right foot neuroma, bilateral knee replacements, right elbow bursa excision, sinus surgery and lumpectomy left breast. Left total knee replacement and revision left tka SOCIAL HISTORY: The patient denies alcohol or tobacco use. He lives in a single story home. 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 FAMILY HISTORY: Negative for DVT. MEDICATIONS: Klor-Con 10 mEq daily, benazepril 40 mg daily, garlic 1000 mg, amoxicillin 500 mg, triamterene 37.5/2.5 mg, amlodipine 5 mg, vitamin, Paras's Wort 300 mg, Food Enzymes, fish oil 1200 mg, ibuprofen 600 mg b.i.d. ALLERGIES: TOBREX AND KEFLEX. REVIEW OF SYSTEMS: See HPI. Ten other systems reviewed, all negative. PHYSICAL EXAMINATION: VITAL SIGNS: Height 5 foot 10, weight 204 pounds, BMI is 29. GENERAL: This is a well-developed, well-nourished male who is alert and oriented x3. Mood and affect are appropriate. HEAD, EYES, EARS, NOSE, AND THROAT: Normocephalic, atraumatic. Mucous membranes are moist and intact. NECK: Supple without lymphadenopathy. HEART: Regular rate and rhythm without murmurs, rubs or gallops. LUNGS: Clear to auscultation without wheezes or rhonchi. ABDOMEN: Soft and nontender. Bowel sounds are equal and active. EXTREMITIES: wound dehiscence noted with complete rupture of medial retinaculum. no active bleeding noted. no debris noted in the wound. calf soft and non tender. NVDI. X-RAY EXAMINATION: PENDING IMPRESSION: wound dehiscence s/p revision Left TKA approximately 2 weeks ago. PLAN: The patient will be admitted for I&D and poly exchange of his left total knee later today by U physician. will keep NPO, obtain xrays pre op to evaluate for loosening or any fracture.
--- NOTE | 2016-06-09 12:26 | DIAGNOSTIC IMAGING REPORT ---
LEFT KNEE 1 OR 2 VIEWS ROUTINE CLINICAL HISTORY: left knee pain pain COMPARISON: 05/21/2016 DISCUSSION: Presence of a total left knee revision type procedure is again noted. Skin sahra have been removed as has been the surgical drain. Surrounding packing or bandaging material over the skin surface is present. There is evidence for what appears to be lateral dislocation of the patella. IMPRESSION: 1. Stable postoperative changes to the distal femur as well as proximal tibia consistent with knee revision type procedure. 2. Apparent lateral displacement/dislocation of the patella Electronically signed by: Bhupinder Doherty M.D. 06/09/2016 12:25 PM Dictated Date/Time: 06/09/2016 12:22 PM
[2016-06-09] MEDS ORDERED: MIDAZOLAM HCL 1 MG/ML 2ML VIAL ONE ×2 (13:02→13:03)
[2016-06-09] MEDS ORDERED: FENTANYL CITRATE INJ 50 MCG/1 ML 2 ML VIAL ONE (13:03)
[2016-06-09] MEDS ORDERED: VANCOMYCIN INJ 1,400 MG in SODIUM CHLORIDE 0.9% 500ML 500 ML IV SCH (13:15)
[2016-06-09] MEDS ORDERED: EpHEDrine SULFATE INJ 50 MG/ML AMP IV PRN (13:45)
[2016-06-09] MEDS ORDERED: FENTANYL CITRATE INJ 50 MCG/1 ML 2 ML VIAL IV PRN (13:45)
[2016-06-09] MEDS ORDERED: ONDANSETRON INJ 2 MG/ML 2 ML VIAL IV PRN ×2 (13:45→16:00)
[2016-06-09] MEDS ORDERED: ATROPINE SULFATE 0.1 MG/ML 5ML SYR IV PRN (13:45)
[2016-06-09] MEDS ORDERED: BUPIVACAINE 0.5 % 5 MG/1 ML PF 10ML VIAL ONE (14:01)
[2016-06-09] MEDS ORDERED: POVIDONE-IODINE OP SOLN 30 ML BTL TOP ONE (14:59)
[2016-06-09] MEDS ORDERED: BACITRACIN 50000 UNIT VIAL IR ONE (14:59)
--- NOTE | 2016-06-09 15:03 | [facility] Post Operative Brief Note ---
Immediate Operative Summary Operative Date Jun 09, 2016. Pre-Operative Diagnosis Wound dehiscence status post revision left total knee arthroplasty with quadricep tendon tear Post-Operative Diagnosis Wound dehiscence status post revision left total knee arthroplasty with quadricep tendon tear Procedure(s) Performed Left Knee Incision and Drainage, Poly Exchange, debridement, repair of quadricep tendon Surgeon Dr. Mc Connelly [employer] Manager Surgeon(s) Bhupinder Ghosh PA-C Estimated Blood Loss 20ml Findings tear of quadriceps into vastus lateralis muscle with complete wound dehiscence of tka incision and deep repair Specimens A. hardware removal of left knee Complication(s) None Disposition Recovery Room / PACU
[2016-06-09] MEDS ORDERED: PROPOFOL IV EMULSION 10 MG/ML 20 ML VIAL IV ONE (15:05)
--- NOTE | 2016-06-09 15:27 | OPERATIVE REPORT ---
DATE OF OPERATION: 06/09/2016 PREOPERATIVE DIAGNOSES: Complete wound dehiscence of the skin and deep fascial repair with tear quadriceps tendon and the tear extending into the vastus lateralis muscle left leg, status post left total knee revision. POSTOPERATIVE DIAGNOSES: Same. PROCEDURES: Debridement lavage of wound with poly change upsized to a 21 mm constrained poly with a repair of vastus lateralis quadriceps tendon and repair of deep fascia and subcutaneous tissue and skin. SURGEON: Dr. Connelly. SUPERVISOR TUMBLERS: Bhupinder Ghosh, who was necessary for prepping, draping, retraction, and assistance in wound closure of deep fascia, subcutaneous and skin and was necessary for. ESTIMATED BLOOD LOSS: 20 mL. COMPLICATIONS: None. HISTORY OF PRESENT ILLNESS: The patient is a 76-year-old white male who had had a fall at home and had a complete disruption of his skin, his deep fascia, tearing his quadriceps tendon into his vastus lateralis through the region of the previous arthrotomy and revision total knee, which was performed 05/21/2016. He apparently crawled from his basement to gain assistance after such injury, wound was clean, although obviously had been exposed to environment. DESCRIPTION OF PROCEDURE: After proper prepping and draping, the left lower extremity wound was subsequently irrigated with copious amounts of sterile saline solution via 10 liters of bacitracin impregnated saline solution. The poly was removed. The ends of the skin edges, the deep tissue as well as the implants were also scrubbed with Betadine scrub. Pulsavac was used. After changing the poly to a 21 mm, the medial and lateral collateral ligament laxity was gone. The implant was stable, full extension was noted and was stable throughout flexion, mid flexion and full extension. Subsequently, the wound was irrigated with copious amounts of sterile saline solution. The poly was changed, the quadriceps tendon after extending the proximal incision, approximately 4-5 cm the proximal quadriceps tendon was repaired with #2-0 FiberWire as well as #1 Vicryl where the tear extended off into the vastus lateralis. The quadriceps tendon having been repaired, the deep fascia was repaired with intermittent #2-0 FiberWire as well #1 Vicryl, subQ was closed with 2-0 Vicryl, skin was closed with skin clips. A sterile compression dressing was placed. Please note the deep wound had a Hemovac placed as well as subcutaneous VAC was also placed. The wound having been thoroughly irrigated with copious amounts of sterile saline solution prior to closure, the Betadine soak was also used. The patient having had the wound closed. The knee was placed in knee immobilizer and taken to the recovery room in stable condition. I attest to the content of the Intraoperative Record and any orders documented therein. Any exceptio ns are noted below.
[2016-06-09] MEDS ORDERED: MoRPHine SULFATE 2 MG/ML CARP IV PRN ×2 (16:00→16:30)
[2016-06-09] MEDS ORDERED: ALUMINUM/MAGNESIUM/SIMETH (MAALOX MAX) 30 ML UDC PO PRN (16:00)
[2016-06-09] MEDS ORDERED: MAGNESIUM HYDROXIDE SUSP 30 ML UDC PO PRN (16:00)
[2016-06-09] MEDS ORDERED: SOD PHOSPHATE/SOD BIPHOSPHATE ENEMA 132 ML BTL PR PRN (16:00)
[2016-06-09] MEDS ORDERED: BISACODYL 10 MG SUPP PR PRN (16:00)
--- NOTE | 2016-06-09 16:26 | Anesthesiology Progress Note ---
Anesthesia Post Op Note Date & Time Jun 09, 2016 at 16:26 Vital Signs Pain Intensity: 0 Vital Signs Past 12 Hours Date Time Temp Pulse Resp B/P Pulse Ox O2 Delivery O2 Flow Rate FiO2 06/09/16 15:47 36.3 80 18 106/65 98 Nasal Cannula 2 06/09/16 12:33 97 Room Air 06/09/16 12:24 75 06/09/16 12:19 77 18 144/87 97 06/09/16 10:25 36.8 69 18 173/84 96 Room Air Notes Mental Status: alert / awake / arousable, participated in evaluation Pt Amnestic to Procedure: Yes Nausea / Vomiting: adequately controlled Pain: adequately controlled Airway Patency, RR, SpO2: stable & adequate BP & HR: stable & adequate Hydration State: stable & adequate Neuraxial Anesthesia: was administered, sensory block is resolving Anesthetic Complications: no major complications apparent
[2016-06-09] MEDS ORDERED: MoRPHine SULFATE 10 MG/ML CARP/VIAL IV PRN (16:30)
--- NOTE | 2016-06-09 16:59 | DIAGNOSTIC IMAGING REPORT ---
LEFT KNEE 1 OR 2 VIEWS ROUTINE CLINICAL HISTORY: Postop examination COMPARISON: 06/09/2016 DISCUSSION: There are postsurgical changes of a total left knee arthroplasty and patellar resurfacing. The femoral and tibial components appear well seated. No acute fractures are visualized. There are overlying skin sahra and surgical drains. There is air within the soft tissues consistent with recent surgery. IMPRESSION: Postsurgical changes of a long stem total left knee arthroplasty. Electronically signed by: Rj Woods M.D. 06/09/2016 4:57 PM Dictated Date/Time: 06/09/2016 4:57 PM
[2016-06-09] MEDS: D5W AND 1/2NSS + 20MEQ KCL 1,000 ML IV SCH (18:32)
[2016-06-09] MEDS: FERROUS GLUCONATE 324 MG TAB PO SCH (18:33)
[2016-06-09] MEDS: OXYCODONE HCL IR 5 MG TAB (IMMEDIATE RELEASE) PO PRN ×2 (19:36→23:53)
[2016-06-09] MEDS ORDERED: NURSING VERBAL MED ORDER ONE ×2 (19:45→22:15)
[2016-06-09] MEDS: MoRPHine SULFATE 4 MG/ML 1 ML CARP\\VIAL IV PRN ×2 (20:23→22:19)
[2016-06-09] MEDS: ASPIRIN 81 MG ECTAB PO SCH (20:26)
[2016-06-09] MEDS: OXYCODONE HCL 10 MG TABCR (OXYCONTIN) PO SCH (20:26)
[2016-06-09] MEDS: SENNA 8.6 MG TAB PO SCH (20:27)
[2016-06-09] MEDS: DOCUSATE SODIUM 100 MG CAP PO SCH (20:27)
[2016-06-09] MEDS: CeleBREX 200 MG CAP PO SCH (20:27)
[2016-06-09] MEDS: ACETAMINOPHEN 500 MG TAB PO SCH (21:54)
[2016-06-09] MEDS ORDERED: KETOROLAC TROMETHAMINE 15 MG/ML VIAL ONE (22:14)
[2016-06-09] MEDS ORDERED: ZOLPIDEM TARTRATE 5 MG TAB PO PRN (22:30)
[2016-06-09] MEDS ORDERED: MoRPHine SULFATE 4 MG/ML 1 ML CARP\\VIAL IV ONE (22:30)
[2016-06-10] MEDS ORDERED: VANCOMYCIN INJ 1,400 MG in SODIUM CHLORIDE 0.9% 500ML 500 ML IV SCH (02:00)
[2016-06-10 03:22] VITALS: BP 137/73; PULSE 73; TEMP 36.8; O2SAT 94
[2016-06-10] MEDS: D5W AND 1/2NSS + 20MEQ KCL 1,000 ML IV SCH ×2 (03:39→14:09)
[2016-06-10] MEDS: ACETAMINOPHEN 500 MG TAB PO SCH ×3 (06:16→22:07)
[2016-06-10 07:49] LABS: PROTHROMBIN TIME (PATIENT) 11.1 SECONDS (9.0-12.0)
[2016-06-10 08:07] LABS: HEMATOCRIT 23.8 % (42-52); MEAN CELL VOLUME 97.5 fL (80-100); MEAN CORPUSCULAR HEMOGLOBIN 34.8 pg (25-34); MEAN CORPUSCULAR HGB CONC 35.7 g/dl (32-36); MEAN PLATELET VOLUME 8.7 fL (7.4-10.4); PLATELET COUNT 191 K/uL (130-400); RED BLOOD COUNT 2.44 M/uL (4.7-6.1); WHITE BLOOD COUNT 5.26 K/uL (4.8-10.8)
--- NOTE | 2016-06-10 08:08 | Orthopedic Progress Note ---
Orthopedic Progress Note Date of Service Jun 10, 2016. Subjective Post OP Day: 1 Reports: feeling well Objective N/V intact, dressing C/D/I (Hemovac and Prevena in place), toes mobile Date Time Temp Pulse Resp B/P Pulse Ox O2 Delivery O2 Flow Rate FiO2 06/10/16 03:22 36.8 73 16 137/73 94 Room Air 06/09/16 23:40 Room Air 06/09/16 23:29 36.7 74 16 121/70 96 Room Air 06/09/16 20:47 36.9 86 18 136/78 96 Nasal Cannula 2.0 06/09/16 18:57 37.2 67 18 146/88 99 Nasal Cannula 2.0 06/09/16 17:59 36.3 67 20 134/81 99 Nasal Cannula 2.0 06/09/16 17:30 36.4 68 18 123/83 98 Nasal Cannula 2.0 06/09/16 17:00 97 Nasal Cannula 2.0 06/09/16 17:00 Nasal Cannula 2.0 06/09/16 17:00 36.5 66 18 118/78 97 Nasal Cannula 2.0 06/09/16 16:49 64 16 100 06/09/16 16:49 63 16 06/09/16 16:48 118/70 06/09/16 16:44 60 16 06/09/16 16:44 60 16 100 06/09/16 16:43 128/72 06/09/16 16:39 62 18 06/09/16 16:39 61 18 100 06/09/16 16:38 120/68 06/09/16 16:34 62 16 06/09/16 16:34 64 16 100 06/09/16 16:33 62 15 122/73 100 06/09/16 16:33 62 15 06/09/16 16:28 63 15 06/09/16 16:28 61 15 115/72 100 06/09/16 16:27 62 18 06/09/16 16:27 62 18 100 06/09/16 16:24 110/70 06/09/16 16:22 62 17 06/09/16 16:22 61 17 99 06/09/16 16:18 107/70 06/09/16 16:17 60 9 06/09/16 16:17 61 9 100 06/09/16 16:13 117/64 06/09/16 16:12 60 12 100 06/09/16 16:12 59 12 06/09/16 16:08 101/67 06/09/16 16:07 66 20 06/09/16 16:07 65 20 100 06/09/16 16:03 100/57 06/09/16 16:02 63 12 100 06/09/16 16:02 64 12 06/09/16 15:58 94/62 06/09/16 15:57 71 15 06/09/16 15:57 71 15 100 06/09/16 15:53 106/67 06/09/16 15:52 66 12 06/09/16 15:52 68 12 100 06/09/16 15:48 102/62 06/09/16 15:47 36.3 80 18 106/65 98 Nasal Cannula 2 06/09/16 15:47 75 19 06/09/16 15:47 75 19 100 06/09/16 12:33 97 Room Air 06/09/16 12:24 75 06/09/16 12:19 77 18 144/87 97 06/09/16 10:25 36.8 69 18 173/84 96 Room Air Laboratory Results 24 Hours: Test 06/09/16 10:22 06/10/16 07:12 White Blood Count 9.08 K/uL Red Blood Count 3.64 M/uL Hemoglobin 12.2 g/dL Hematocrit 34.8 % Mean Corpuscular Volume 95.6 fL Mean Corpuscular Hemoglobin 33.5 pg Mean Corpuscular Hemoglobin Concent 35.1 g/dl Platelet Count 262 K/uL Mean Platelet Volume 9.1 fL Neutrophils (%) (Auto) 82.9 % Lymphocytes (%) (Auto) 10.1 % Monocytes (%) (Auto) 5.4 % Eosinophils (%) (Auto) 1.2 % Basophils (%) (Auto) 0.1 % Neutrophils # (Auto) 7.52 K/uL Lymphocytes # (Auto) 0.92 K/uL Monocytes # (Auto) 0.49 K/uL Eosinophils # (Auto) 0.11 K/uL Basophils # (Auto) 0.01 K/uL Prothromb Time International Ratio 1.0 Prothrombin Time 11.1 SECONDS Additional Notes: H/H pending Assessment & Plan Assessment: 76 yo male stable POD #1 s/p left TKA I&D, poly change, extensor mechanism repair Plan: 1. Med maangement 2. DVT prophylaxis- ASA, TEDs, SCDs 3. PT/OT- knee immobilizer at all times 4. D/C planning
[2016-06-10 08:11] LABS: BUN/CREATININE RATIO 18.9 (10-20); CALCIUM 7.9 mg/dl (8.5-10.1); CREATININE 1.4 mg/dl (0.60-1.40); POTASSIUM 3.8 mmol/L (3.5-5.1)
[2016-06-10 09:15] VITALS: BP 130/71; PULSE 75; TEMP 37; O2SAT 93
[2016-06-10] MEDS: FERROUS GLUCONATE 324 MG TAB PO SCH ×3 (09:17→18:00)
[2016-06-10] MEDS: POTASSIUM CHLORIDE 10 MEQ TABCR PO SCH (09:18)
[2016-06-10] MEDS: PANTOprazole SOD 40 MG TAB PO SCH (09:18)
[2016-06-10] MEDS: AMLODIPINE BESYLATE 5 MG TAB PO SCH (09:19)
[2016-06-10] MEDS: CeleBREX 200 MG CAP PO SCH ×2 (09:19→20:55)
[2016-06-10] MEDS: MULTIVITAMIN TAB PO SCH (09:19)
[2016-06-10] MEDS: EZETIMIBE 10MG TAB PO SCH (09:20)
[2016-06-10] MEDS: OXYCODONE HCL 10 MG TABCR (OXYCONTIN) PO SCH ×2 (09:21→22:06)
[2016-06-10] MEDS: ENALAPRIL MALEATE 10 MG TAB PO SCH (09:21)
[2016-06-10] MEDS: TRIAMTERENE/HCTZ 37.5/25MG CAP PO SCH (09:22)
[2016-06-10] MEDS: DOCUSATE SODIUM 100 MG CAP PO SCH ×2 (09:22→20:55)
[2016-06-10] MEDS: ASPIRIN 81 MG ECTAB PO SCH ×2 (09:23→20:54)
--- NOTE | 2016-06-10 09:38 | Anesthesiology Progress Note ---
Anesthesia Post Op Note Date & Time Jun 10, 2016 at 09:37 Vital Signs Pain Intensity: 4.0 Vital Signs Past 12 Hours Date Time Temp Pulse Resp B/P Pulse Ox O2 Delivery O2 Flow Rate FiO2 06/10/16 09:15 37.0 75 16 130/71 93 Room Air 06/10/16 03:22 36.8 73 16 137/73 94 Room Air 06/09/16 23:40 Room Air 06/09/16 23:29 36.7 74 16 121/70 96 Room Air Notes Mental Status: alert / awake / arousable, participated in evaluation Pt Amnestic to Procedure: Yes Nausea / Vomiting: adequately controlled Pain: adequately controlled Airway Patency, RR, SpO2: stable & adequate BP & HR: stable & adequate Hydration State: stable & adequate Neuraxial Anesthesia: sensory block resolved Anesthetic Complications: no major complications apparent
[2016-06-10 11:31] VITALS: BP 124/71; PULSE 71; TEMP 36.3; O2SAT 95
[2016-06-10] MEDS: OXYCODONE HCL IR 5 MG TAB (IMMEDIATE RELEASE) PO PRN ×2 (15:05→20:55)
[2016-06-10 15:16] VITALS: BP 136/75; PULSE 74; TEMP 37.1; O2SAT 95
[2016-06-10] MEDS: SENNA 8.6 MG TAB PO SCH (20:55)
[2016-06-10 22:54] VITALS: BP 116/69; PULSE 80; TEMP 37.1; O2SAT 95
[2016-06-11] MEDS: ACETAMINOPHEN 500 MG TAB PO SCH ×3 (06:00→21:39)
--- NOTE | 2016-06-11 08:04 | Orthopedic Progress Note ---
Orthopedic Progress Note Date of Service Jun 11, 2016. Subjective Post OP Day: 2 Reports: feeling well, Denies: SOB, calf pain, chest pain, light headedness, nausea / vomiting Objective calves soft nontender, N/V intact, dressing C/D/I (PREVENA), A&O x3, toes mobile KNEE IMMOBILIZER Date Time Temp Pulse Resp B/P Pulse Ox O2 Delivery O2 Flow Rate FiO2 06/10/16 22:54 37.1 80 16 116/69 95 Room Air 06/10/16 22:50 Room Air 06/10/16 16:23 Room Air 06/10/16 15:16 37.1 74 14 136/75 95 Room Air 06/10/16 11:31 36.3 71 16 124/71 95 Room Air 06/10/16 09:15 37.0 75 16 130/71 93 Room Air Assessment & Plan Assessment: 76 yo male stable POD #2 s/p left TKA I&D, poly change, extensor mechanism repair Plan: 1. Med maangement 2. DVT prophylaxis- ASA, TEDs, SCDs 3. PT/OT- knee immobilizer at all times 4. D/C planning Inhouse Planning Pain Management: Celebrex, Oxycontin, PO Tylenol, Oxy IR DVT Prophylaxis: TEDs, SCDs, ASA Discharge Planning Discharge Planning: home ([facility]. )
--- NOTE | 2016-06-11 08:08 | Discharge Instructions ---
Discharge Instructions Admission Reason for Admission: Wound Dehiscence Discharge Discharge Diagnosis / Problem: SP I&D LEFT KNEE WITH EXTENSOR MECHANISM REPAIR Discharge Goals Goal(s): Decrease discomfort, Improve function, Increase independence Activity Recommendations Activity Limitations: per Instructions/Follow-up section . Instructions / Follow-Up Instructions / Follow-Up ACTIVITY RECOMMENDATIONS: SELF CARE INSTRUCTIONS AFTER TOTAL KNEE REPLACEMENT A. MAINTAIN KNEE IMMOBILIZER AT ALL TIMES. NO KNEE FLEXION B. You may progress at your own pace from walking with a walker or crutches to a cane; then to no assistive devices. C. Make walking a part of your daily routine. Be up as much as comfortable with rest periods throughout the day. Rest with leg elevation is very important. Use the ice wrap frequently for the first 3-4 weeks. D. There are no restrictions on activities. You may ride in a car, shop, participate in river driver and all social activities. E. Wear the long elastic stockings (MILAN hose) 20 hours a day for 2 weeks after surgery. They can be removed several times a day for laundering and for a bath. F. You may shower, no tub baths until cleared by your doctor. SPECIAL CARE INSTRUCTIONS: VERY IMPORTANT TO READ AND REVIEW A. There are a few signs you need to watch for after you are home. Call [facility] if you notice any of the followin. Increased severe knee pain. Some pain is expected especially when you exercise. 2. Increased swelling in your leg or knee; pain or swelling of the calf muscle in either lower leg. 3. Any fluid drainage from the incision. 4. Shortness of breath or chest pain. B. Please call [facility] at if you have any concerns or questions about your operation or recovery. The doctor or his nurse will return your call promptly. C. You must take antibiotics before dental work, bladder, bowel or other surgery. Your doctor will provide you with a permanent care to carry describing this precaution. IMPORTANT: * REMEMBER TO TAKE ASPIRIN, 81 MG, TWICE DAILY FOR 4 WEEKS UNLESS OTHERWISE DIRECTED. THIS IS YOUR BLOOD THINNER. * HIGH RISK PATIENTS MAY BE PRESCRIBED A STRONGER BLOOD THINNER. THIS WILL BE PROVIDED AT DISCHARGE. * CALL IF INCREASED PAIN, REDNESS, DRAINAGE OR FEVER GREATER THAT 101. * WEAR MILAN HOSE 20 HOURS PER DAY FOR 2 WEEKS. Silverlon- This is a large adhesive bandage that contains silver ions. This helps your incision heal by fighting off bacteria and protecting it from the outside environment. You are permitted to shower with this dressing. This will remain on your incision for 7 days and then should be removed. Some visible blood or drainage through the dressing window is normal. If there is significant drainage or leaking noted before the 7 days notify your doctor's office immediately. Once removed, keep incision clean and dry. If there is any drainage or redness noted, please call your surgeon. FOLLOW UP VISIT: If appointment is not already scheduled: Please call [facility] to make a follow-up appointment for 2 weeks after your surgery at . Current Hospital Diet Patient's current hospital diet: Regular Diet Discharge Diet Recommended Diet: Regular Diet Procedures Procedures Performed: Left Knee Incision and Drainage, Poly Exchange, debridement, repair of quadricep tendon Pending Studies Studies pending at discharge: no Medical Emergencies . Who to Call and When: Medical Emergencies: If at any time you feel your situation is an emergency, please call 911 immediately. . Non-Emergent Contact Non-Emergency issues call your: Primary Care Provider . "Provider Documentation" section prepared by Ninoska Stoddard. VTE Core Measure Inpt VTE Proph given/why not?: Other Anticoagulation, T.E.D. Stockings, SCD's
[2016-06-11 08:19] VITALS: BP 138/82; PULSE 69; TEMP 36.2; O2SAT 97
[2016-06-11 08:55] VITALS: O2SAT 97
[2016-06-11] MEDS: AMLODIPINE BESYLATE 5 MG TAB PO SCH (09:02)
[2016-06-11] MEDS: CeleBREX 200 MG CAP PO SCH ×2 (09:02→21:38)
[2016-06-11] MEDS: ASPIRIN 81 MG ECTAB PO SCH ×2 (09:02→21:39)
[2016-06-11] MEDS: POTASSIUM CHLORIDE 10 MEQ TABCR PO SCH (09:02)
[2016-06-11] MEDS: OXYCODONE HCL 10 MG TABCR (OXYCONTIN) PO SCH ×2 (09:02→21:39)
[2016-06-11] MEDS: EZETIMIBE 10MG TAB PO SCH (09:02)
[2016-06-11] MEDS: PANTOprazole SOD 40 MG TAB PO SCH (09:03)
[2016-06-11] MEDS: TRIAMTERENE/HCTZ 37.5/25MG CAP PO SCH (09:04)
[2016-06-11] MEDS: DOCUSATE SODIUM 100 MG CAP PO SCH ×2 (09:04→21:39)
[2016-06-11] MEDS: ENALAPRIL MALEATE 10 MG TAB PO SCH (09:04)
[2016-06-11] MEDS: MULTIVITAMIN TAB PO SCH (09:04)
[2016-06-11] MEDS: FERROUS GLUCONATE 324 MG TAB PO SCH ×3 (09:04→18:10)
[2016-06-11 11:47] VITALS: BP 150/82; PULSE 78; TEMP 37; O2SAT 96
[2016-06-11] MEDS ORDERED: NURSING VERBAL MED ORDER ONE (12:30)
[2016-06-11] MEDS ORDERED: VANCOMYCIN CONSULT ACTIVE PRN (13:30)
[2016-06-11] MEDS: VANCOMYCIN INJ 1,350 MG in SODIUM CHLORIDE 0.9% 250ML 250 ML IV SCH (14:37)
[2016-06-11] MEDS: SENNA 8.6 MG TAB PO SCH (21:39)
[2016-06-11 23:12] VITALS: BP 126/71; PULSE 75; TEMP 37; O2SAT 96
[2016-06-12] MEDS: VANCOMYCIN INJ 1,350 MG in SODIUM CHLORIDE 0.9% 250ML 250 ML IV SCH (05:29)
[2016-06-12] MEDS: ACETAMINOPHEN 500 MG TAB PO SCH (05:30)
[2016-06-12 07:21] VITALS: BP 125/78; PULSE 65; TEMP 36.4; O2SAT 97
[2016-06-12] MEDS: DOCUSATE SODIUM 100 MG CAP PO SCH (08:31)
[2016-06-12] MEDS: FERROUS GLUCONATE 324 MG TAB PO SCH (08:31)
[2016-06-12] MEDS: ASPIRIN 81 MG ECTAB PO SCH (08:31)
[2016-06-12] MEDS: AMLODIPINE BESYLATE 5 MG TAB PO SCH (08:31)
[2016-06-12] MEDS: OXYCODONE HCL 10 MG TABCR (OXYCONTIN) PO SCH (08:31)
[2016-06-12] MEDS: CeleBREX 200 MG CAP PO SCH (08:32)
[2016-06-12] MEDS: MULTIVITAMIN TAB PO SCH (08:32)
[2016-06-12] MEDS: TRIAMTERENE/HCTZ 37.5/25MG CAP PO SCH (08:32)
[2016-06-12] MEDS: PANTOprazole SOD 40 MG TAB PO SCH (08:32)
[2016-06-12] MEDS: POTASSIUM CHLORIDE 10 MEQ TABCR PO SCH (08:32)
[2016-06-12] MEDS: ENALAPRIL MALEATE 10 MG TAB PO SCH (08:33)
[2016-06-12] MEDS: EZETIMIBE 10MG TAB PO SCH (08:33)
[2016-06-12] MEDS ORDERED: RXC5 PO (10:13)
[2016-06-12] MEDS ORDERED: CEPH500C2 PO (10:13)
[2016-06-12] MEDS ORDERED: SNK PO (10:13)
[2016-06-12] MEDS ORDERED: ASPI81TA28 PO (10:13)
--- NOTE | 2016-06-12 10:25 | Orthopedic Progress Note ---
Orthopedic Progress Note Date of Service Jun 12, 2016. Subjective Post OP Day: 2 Reports: feeling well, Denies: SOB, calf pain, chest pain, light headedness, nausea / vomiting Objective calves soft nontender, N/V intact, dressing C/D/I (PREVENA) Date Time Temp Pulse Resp B/P Pulse Ox O2 Delivery O2 Flow Rate FiO2 06/12/16 08:00 Room Air 06/12/16 07:21 36.4 65 18 125/78 97 Room Air 06/11/16 23:40 Room Air 06/11/16 23:12 37.0 75 18 126/71 96 Room Air 06/11/16 17:55 Room Air 06/11/16 11:47 37.0 78 15 150/82 96 Room Air Assessment & Plan Assessment: 76 yo male stable POD #2 s/p left TKA I&D, poly change, extensor mechanism repair Plan: 1. Med management 2. DVT prophylaxis- ASA, TEDs, SCDs 3. PT/OT- knee immobilizer at all times 4. D/C planning- D/C home today w/ immobilizer and cautious ambulation using a walker. 5. F/U in clinic w/ Dr Sanford Inhouse Planning Pain Management: Celebrex, Oxycontin, PO Tylenol, Oxy IR DVT Prophylaxis: TEDs, SCDs, ASA Discharge Planning Discharge Planning: home ([facility] HOME TUESDAY. )
[2016-06-12 10:37] VITALS: BP 125/78; PULSE 65; TEMP 36.4; O2SAT 97
--- NOTE | 2016-06-13 10:37 | Discharge Summary ---
Orthopedic Discharge Summary Admission Date/Reason Jun 09, 2016 at 17:14 Wound Dehiscence. Discharge Date/Disposition Jun 12, 2016 Home Diagnosis Principal Diagnosis: wound dehiscence Left Knee Procedure(s) Performed Left Knee Incision and Drainage, Poly Exchange, debridement, repair of quadricep tendon Consultations NONE Medication Reconciliation New Medications: Cephalexin Monohydrate (Keflex) 500 Mg Cap 500 MG PO QID for 7 Days, #28 CAP Oxycodone HCl (Oxycodone HCl) 5 Mg Tab 5-10 MG PO Q4H PRN for Pain, #60 TAB Senna (Senna Lax) 8.6 Mg Tab 17.2 MG PO HS for 14 Days, TAB Changed Medications: Aspirin (Aspirin Ec) 81 Mg Tab 81 MG PO BID for 30 Days (Changed from: DAILY) Continued Medications: Acetaminophen (Tylenol Extra Strength) 500 Mg Tab 1000 MG PO Q8@0000,0800,1600, #180 TAB Amlodipine (Norvasc) 5 Mg Tab 5 MG PO QAM, TAB Benazepril Hcl (Lotensin) 40 Mg Tab 40 MG PO QAM, TAB Celecoxib (Celebrex) 200 Mg Cap 200 MG PO BID, #60 CAP Ezetimibe (Zetia) 10 Mg Tab 10 MG PO QAM, 0 Refills Fish Oil ([place]-3) 1 Ea Cap 1 TAB PO QAM, CAP Garlic (Garlic) 1,000 Mg Cap 1000 MG PO QAM Multivitamin (Multivitamin) Tab 1 TAB PO QAM, TAB Potassium Chloride (Micro-K Ext Rel) 10 Meq Capcr 10 MEQ PO DAILY, CAP Nany's Wort ([place] Perf ([place] Wort) 300 Mg Cap 300 MG PO QAM Triamterene/Hctz (Dyazide 37.5MG/25MG) Cap 1 TAB PO QAM, CAP Discontinued Medications: Amoxicillin (Amoxil) 500 Mg Cap 500 MG PO QAM, #21 CAP Admission Physical Exam As per Admitting History & Physical. Hospital Course Patient was admitted after sustaining a fall onto his left knee on 06/09/16 and sustained a wound dehiscence to his left total knee replacement. He underwent urgent I&D with poly exchange and quad tendon repair later that day. Prevena wound vac was placed. post op, his activity was well tolerated, in particular, due to nature of his injury, he was placed into knee immobilizer with limited flexion. after exam on 06/12/16, patient felt stable for d/c home with PO antibiotics. please refer to daily progress notes for complete details. Last Vital Signs Documentation Date Time Temp Pulse Resp B/P Pulse Ox O2 Delivery O2 Flow Rate FiO2 06/12/16 10:37 36.4 65 18 97 Nasal Cannula 06/12/16 07:21 125/78 06/09/16 20:47 2.0 Last Resulted CBC 06/10/16 07:12 Last Resulted BMP 06/10/16 07:12 Discharge Instructions Please refer to the electronic Patient Visit Report (Discharge Instructions) for additional information.
== END 2016-06-12 14:07 | disposition home or self-care (01) | DRG 909 ==
LOC: ENRESERVDT → ENRESERVTM → C.EDB 10:23 → C.MSN 17:14
PROVIDERS: ADMIT Orthopaedic Surgery; ATTEND Orthopaedic Surgery
PROC: 0JQP0ZZ Repair Left Lower Leg Subcutaneous Tissue and Fascia, Open Approach (ICD-10-PCS; principal; 2016-06-09 11:00)
PROC: 0LQR0ZZ Repair Left Knee Tendon, Open Approach (ICD-10-PCS; principal; 2016-06-09 11:00)
PROC: 0SRD0JZ Replacement of Left Knee Joint with Synthetic Substitute, Open Approach (ICD-10-PCS; principal; 2016-06-09 11:00)
DX: T81.32XA Disruption of internal operation (surgical) wound, not elsewhere classified, initial encounter (principal); W00.0XXA Fall on same level due to ice and snow, initial encounter; Y93.H1 Activity, digging, shoveling and raking; Z96.652 Presence of left artificial knee joint; Z79.82 Long term (current) use of aspirin; Z79.899 Other long term (current) drug therapy

== ENCOUNTER → 2017-01-14 | Outpatient (CLI) | payer OTHER ==
[~2017-01-14] MED LIST changes: -AMOX500C3 PO; -ANTACID OTC PO; -ASPEC325 PO; +ASPI81TA28 PO; -DYZ PO; -FOOD ENZYMES PO; -MORP15TA19 PO; -NEXIUM PO; -ONDA8TAB6 PO; -POTA-331 PO; +POTA10CA28 PO; +SNK PO; +TRIA37.5 PO; -[UNRECOGNIZED DRUG - OTHER] PO
[2017-01-14 13:16] LABS: BASO % 0.6 %; BASO ABS # 0.06 K/uL (0-0.2); COMPLETE YES; IG% 0.2 %; LYMPH % 18.3 %; LYMPH ABS # 1.74 K/uL (1.2-3.4); MEAN CELL VOLUME 88.8 fL (80-100); MEAN CORPUSCULAR HEMOGLOBIN 27.7 pg (25-34); MEAN CORPUSCULAR HGB CONC 31.1 g/dl (32-36); MEAN PLATELET VOLUME 8.5 fL (7.4-10.4); MONO % 9.5 %; NEUT % 67.4 %; PLATELET COUNT 456 K/uL (130-400); RED BLOOD COUNT 3.94 M/uL (4.7-6.1)
[2017-01-14 15:10] LABS: SYNOVIAL FLUID APPEARANCE BLOODY; SYNOVIAL FLUID COLOR RED; SYNOVIAL FLUID MONONUC RELAT 9.6 %; SYNOVIAL FLUID POLYNUC RELAT 90.4 %
== END | disposition home or self-care (01) ==
LOC: C.LAB 12:50
PROVIDERS: ATTEND Physician Assistant
DX: T84.89XA Other specified complication of internal orthopedic prosthetic devices, implants and grafts, initial encounter (principal); Y83.1 Surgical operation with implant of artificial internal device as the cause of abnormal reaction of the patient, or of later complication, without mention of misadventure at the time of the procedure